=== PATIENT | female | born 1940 | race Two or more races ===

== ENCOUNTER 2025-07-01 17:06 | Emergency (ER) | payer OTHER ==
[~2025-07-01] VITALS: Ht 154.9 cm; Wt 78.0 kg
[2025-07-01 17:31] LABS: PLATELET COUNT (AUTO) 201 K/uL (150-450); RED BLOOD CELL COUNT(AUTO) 4.30 MIL/uL (4.00-5.20); RED CELL DISTRIBUTION WIDTH 13.1 % (11.5-14.5); WHITE BLOOD COUNT (AUTO) 6.1 K/uL (4.5-11.0)
[2025-07-01 17:39] VITALS: TEMP 97.6
[2025-07-01] MEDS ORDERED: 0.9% SODIUM CHLORIDE 10 ML SYRINGE IVP ONE (17:41)
[2025-07-01] MEDS ORDERED: IOHEXOL 350 MG/ML 100 ML VIAL ONE (17:41)
[2025-07-01] MEDS ORDERED: SODIUM CHLORIDE 0.9% 100 ML ONE (17:41)
[2025-07-01 17:44] LABS: TROPONIN I-HIGH SENSITIVITY 33 ng/L (<51)
[2025-07-01 17:45] LABS: CALCIUM, TOTAL 8.5 mg/dL (8.8-10.5); CREATININE 1.09 mg/dL (0.60-1.30); GLOMERULAR FILTR. RATE CALC 48.0 mL/min (>60); GLUCOSE,RANDOM 126.0 mg/dL (70-110); SODIUM SERUM 137.0 mmol/L (136-145); UREA NITROGEN, BLOOD 20.0 mg/dL (7-18)
[2025-07-01 17:49] LABS: ASPARTATE AMINOTRANSFERASE 21.0 U/L (15-37); TOTAL PROTEIN, SERUM 7.2 g/dL (6.4-8.2)
[2025-07-01] MEDS: TENECTEPLASE PER STROKE PROTOCOL CLINICAL ONE (17:57)
[2025-07-01] MEDS ORDERED: -PHARMACY NOTE- MISC SCH (18:00)
[2025-07-01] MEDS ORDERED: LABETALOL HCL 5 MG/ML 20 ML VIAL IVP PRN (18:00)
[2025-07-01 18:13] LABS: APPEARANCE,URINE CLEAR (CLEAR); GLUCOSE, URINE (UA) NEGATIVE (NEGATIVE); LEUKOCYTE ESTERASE ,URINE SMALL (NEGATIVE); NITRATE,URINE NEGATIVE (NEGATIVE); OCCULT BLOOD,URINE NEGATIVE (NEGATIVE); PH,URINE DRUG SCREEN 7.5 (5.0-8.0); SPECIFIC GRAVITIY, URINE 1.020 (1.003-1.030)
[2025-07-01 18:24] LABS: ALCOHOL, URINE DRUG SCREEN NEGATIVE (NEGATIVE); AMPHET/METH SCREEN,URINE NEGATIVE (NEGATIVE); BARBITURATE SCREEN, URINE NEGATIVE (NEGATIVE); CANNABINOID SCREEN,URINE NEGATIVE (NEGATIVE); COCAINE SCREEN,URINE NEGATIVE (NEGATIVE); METHADONE SCREEN, URINE NEGATIVE (NEGATIVE)
[2025-07-01] MEDS ORDERED: CLIN300C58 PO (18:26)
[2025-07-01] MEDS ORDERED: [UNRECOGNIZED DRUG - OTHER] OU (18:26)
[2025-07-01] MEDS ORDERED: IRBE150T51 PO (18:26)
[2025-07-01] MEDS ORDERED: RIVA20TA PO (18:26)
[2025-07-01] MEDS ORDERED: BISO5TAB33 PO (18:26)
[2025-07-01] MEDS ORDERED: ONDANSETRON HCL 4 MG/2 ML VIAL ONE (18:51)
[2025-07-01] MEDS ORDERED: KETAMINE HCL 50 MG/ML 10 ML VIAL ONE (18:55)
[2025-07-01] MEDS ORDERED: FentaNYL CITRATE PF 100 MCG/2 ML VIAL ONE (18:55)
[2025-07-01] MEDS: KETAMINE HCL 50 MG/ML 10 ML VIAL IVP ONE (19:05)
[2025-07-01] MEDS: FentaNYL CITRATE PF 100 MCG/2 ML VIAL IVP ONE (19:05)
[2025-07-01] MEDS: PROPOFOL 1000 MG/ISO-OSM 100 ML IV PRN (19:15)
[2025-07-01] MEDS ORDERED: FentaNYL CIT 1000MCG/0.9% NACL 100 ML IV PRN (19:15)
[2025-07-01 19:21] VITALS: BP 144/77; PULSE 82; RESP 27; O2SAT 95
== END 2025-07-01 20:10 | disposition short-term general hospital (02) ==
LOC: EMS 17:07
DX: I63.9 Cerebral infarction, unspecified (principal); R41.82 Altered mental status, unspecified; I10 Essential (primary) hypertension; I48.91 Unspecified atrial fibrillation; Z95.0 Presence of cardiac pacemaker; Z79.01 Long term (current) use of anticoagulants
CPT/HCPCS: 99285; 70496; 37195; 96365; 71045; 31500; 80053; 81001; 82962; 84484; 85025; 85610; 85730; 86850; 86900; 86901; 36415; 43752; 70498; 93005; 51702; 96368; 80307; 70450; Q9967; J3010; J3490 ×2; J2405; J2704; J7050 ×2; 82948; 96375